=== PATIENT | female | born 1965 | race Two or more races ===

== ENCOUNTER 2020-06-22 12:07 | Outpatient (REF) | payer MEDICAID, SELFPAY | END 2020-06-22 12:08 | disposition home or self-care (01) | LOC: HO.LAB 12:07 | PROVIDERS: Visit Provider Internal Medicine | DX: Z20.822 Contact with and (suspected) exposure to COVID-19 (principal) | CPT/HCPCS: 36415; C9803; U0003 ==

== ENCOUNTER 2020-09-04 14:16 | Outpatient (REF) | payer MEDICAID, SELFPAY ==
[2020-09-04 17:42] LABS: SARS COV2 PCR INHOUSE POSITIVE (Negative)
== END 2020-09-04 14:17 | disposition home or self-care (01) ==
LOC: HO.LAB 14:16
PROVIDERS: Visit Provider Internal Medicine
DX: Z20.822 Contact with and (suspected) exposure to COVID-19 (principal)
CPT/HCPCS: C9803; U0003

== ENCOUNTER 2021-09-24 10:42 | Outpatient (REF) | payer MEDICAID, SELFPAY ==
--- NOTE | ~2021-09-24 | MM_ITS ---
EXAMINATION: MM SCREENING DIGITAL BREAST TOMOSYNTHESIS, BILATERAL CLINICAL INFORMATION: Screening. Asymptomatic. The lifetime risk of breast cancer based on the Tyrer-Cuzick Model is 16%. COMPARISON: Outside mammography 10/28/2014, 01/16/2010, 01/02/2010 ([facility]). TECHNIQUE: Digital breast tomosynthesis is performed in both the craniocaudal and mediolateral oblique views along with computer-aided detection (CAD). Synthesized 2D images are generated from the tomosynthesis. FINDINGS: There are scattered areas of fibroglandular density (ACR BI-RADS breast composition Category b). There are no significant masses, abnormal calcifications, or other abnormalities. There are scattered shifting fibroglandular parenchymal densities overall similar to prior studies. No architectural abnormality. The axilla and skin contours are unremarkable. MM/MM tomosynthesis screening BI IMPRESSION: No mammographic evidence of malignancy. ASSESSMENT: BI-RADS 1: Negative RECOMMENDATION: Routine annual mammography screening. This patient's information was entered into a reminder system with a target due date for their next mammogram.
== END 2021-09-24 10:43 | disposition home or self-care (01) ==
LOC: HO.MAMMO 10:42
PROVIDERS: PCP Student in an Organized Health Care Education/Training Program; Visit Provider Student in an Organized Health Care Education/Training Program
DX: Z12.31 Encounter for screening mammogram for malignant neoplasm of breast (principal)
CPT/HCPCS: 77063; 77067

== ENCOUNTER → 2022-07-17 08:44 | Outpatient (BNVA) | payer MEDICAID, SELFPAY | PROVIDERS: PCP Student in an Organized Health Care Education/Training Program; Visit Provider Internal Medicine Endocrinology, Diabetes & Metabolism | DX: E11.65 Type 2 diabetes mellitus with hyperglycemia (principal); Z79.4 Long term (current) use of insulin | CPT/HCPCS: 36415; 82043; 82947; 83036; 86341; 99202 ==

== ENCOUNTER 2022-07-17 09:49 | Outpatient (REF) | payer MEDICAID, SELFPAY ==
[2022-07-17 12:13] LABS: Creatinine Urine 55.35 mg/dL; Microalbum/Creatinine Ratio Ur 54.2 ug/mg cr
[2022-07-21 17:34] LABS: Glutamic acid decarboxylase Ab <5 IU/mL (<5)
== END 2022-07-17 09:50 | disposition home or self-care (01) ==
LOC: HO.10HDL 09:49
PROVIDERS: Visit Provider Internal Medicine Endocrinology, Diabetes & Metabolism
DX: E11.65 Type 2 diabetes mellitus with hyperglycemia (principal)
CPT/HCPCS: 36415; 82043; 86341

== ENCOUNTER 2023-04-29 17:48 | Outpatient (REF) | payer MEDICAID, SELFPAY ==
[2023-05-02 03:28] LABS: HPV mRNA E6/E7 rflx Not Detected (Not Detected)
== END 2023-04-29 17:49 | disposition home or self-care (01) ==
LOC: HO.CHCLNP 17:48
PROVIDERS: Visit Provider Advanced Practice Midwife
DX: Z12.4 Encounter for screening for malignant neoplasm of cervix (principal); Z11.51 Encounter for screening for human papillomavirus (HPV)
CPT/HCPCS: 87624; 88142

== ENCOUNTER 2024-02-04 09:35 | Outpatient (REF) | payer MEDICAID, SELFPAY ==
[2024-02-04 14:26] LABS: MANUAL DIFF FLAG NO
[2024-02-04 14:35] LABS: Basophils Percent Auto 0.2 % (0-2); Eosinophils Percent Auto 0.8 % (0-4); Hematocrit 42.8 % (37.0-47.0); Hemoglobin 14.7 g/dl (12.0-16.0); Imm Gran Abs Auto 0.02 X10*3/uL (0.00-0.03); Imm Gran Pct Auto 0.4 % (0.0-0.4); Lymphocytes Absolute Auto 1.8 X10*3/uL (1.2-4.9); Lymphocytes Percent Auto 34.1 % (20-40); Mean Corpuscular HGB Conc 34.3 g/dl (31.0-35.0); Mean Corpuscular Hemoglobin 30.4 pg (27.0-33.0); Mean Corpuscular Volume 88.6 fL (80.0-98.0); Mean Platelet Volume 12.9 fL (9.4-12.3); Monocytes Absolute Auto 0.4 X10*3/uL (0.1-1.2); Monocytes Percent Auto 8.1 % (2-11); Neutrophils Percent Auto 56.4 % (45-73); Platelet Count 171 X10*3/uL (160-400); Red Blood Count 4.83 X10*6/uL (4.20-5.50); Red Cell Distribution Width 11.9 % (11.0-16.0); White Blood Count 5.3 X10*3/uL (4.8-10.8)
[2024-02-04 14:42] LABS: Estimated Average Glucose 289 mg/dL; Hemoglobin A1c % 11.7 % (<6.0)
[2024-02-04 15:02] LABS: Alanine Aminotransferase 13 U/L (0-31); Albumin Level 3.9 g/dL (3.5-5.0); Alkaline Phosphatase 92 U/L (39-117); Anion Gap 15 (12-20); Aspartate Amino Transferase 13 U/L (5-31); Bilirubin Direct 0.2 mg/dL (0.0-0.5); Bilirubin Total 0.6 mg/dL (0.0-1.0); Blood Urea Nitrogen 15 mg/dL (9-16); Calcium 9.6 mg/dL (8.4-10.2); Carbon Dioxide 23 mmol/L (22-29); Chloride 103 mmol/L (96-108); Cholesterol 294 mg/dL (<200); Estimated Glomerular Filt Rate > 60; Glucose Random 323 mg/dL (60-115); HDL Cholesterol 38 mg/dL (>40); Lipase 35 U/L (8-78); Potassium 3.7 mmol/L (3.3-5.1); Sodium 137 mmol/L (135-145); Total Protein 7.5 g/dL (6.5-8.0); Triglycerides 597 mg/dL (<150)
== END 2024-02-04 09:36 | disposition home or self-care (01) ==
LOC: HO.CHCLDS 09:35
PROVIDERS: PCP Student in an Organized Health Care Education/Training Program; Referring Provider Family Medicine; Visit Provider Student in an Organized Health Care Education/Training Program
DX: R10.12 Left upper quadrant pain (principal); G89.29 Other chronic pain; I10 Essential (primary) hypertension; E11.9 Type 2 diabetes mellitus without complications; Z79.4 Long term (current) use of insulin
CPT/HCPCS: 36415; 80053; 80061; 82248; 83036; 83690; 85025

== ENCOUNTER 2024-02-05 10:29 | Outpatient (REF) | payer MEDICAID, SELFPAY ==
[2024-02-05 15:27] LABS: Creatinine Urine 66.06 mg/dL; Microalbum/Creatinine Ratio Ur 37.8 ug/mg cr (<30)
== END 2024-02-05 10:30 | disposition home or self-care (01) ==
LOC: HO.CHCLNP 10:29
PROVIDERS: Visit Provider Family Medicine
DX: Z13.89 Encounter for screening for other disorder (principal)
CPT/HCPCS: 82043; 82570

== ENCOUNTER 2025-04-04 09:05 | Outpatient (REF) | payer MEDICAID, SELFPAY ==
--- OUTSIDE RECORDS SUMMARY | 2025-04-04 10:05 | XMS_ITS | Encounter Summary ---
Author Organization [facility] Address [address] [place] [address] [address] [place] [address] Care Team Providers Care Director Of Marketing Name Role Phone Latonia Miller MD Primary Care Provider [phone] Bhavesh Santiago MD Primary Care Prov ider Sybil Humphrey PharmD Unavailable [phone] Encounter Details Date Type Department Care Team (Late st Contact Info) Description 09/30/2022 Orders Only [facility] [address] [place] [address] Latonia Miller MD [address] [place] [address] Social History Tobacco Use Types Packs/Day Years Used Date Smoking Tobacco: Never Smokeless Tobacco: Never Alcohol Use Standard Drinks/Week Comments Never 0 (1 standard drink = 0.6 oz pur e alcohol) PHQ-2 Answer Date Recorded Patient Health Questionnaire-2 Score 1 07/02/2022 Depression Answer Date Recorded Patient Health Questionnaire-2 Score 1 07/02/2022 Comments Unknown Sex and Gender Information Value Date Recorded Sex Assigned at Female 04/01/2022 10:26 AM EDT Legal Sex Female 10:26 AM EDT Gender Identity Female 02/20/2024 11:01 AM EDT Sexual Orientation Straight 02/20/2024 11 :01 AM EDT documented as of this encounter Plan of Treatment Upcoming Encounters Date Type Department Care Team (Late st Contact Info) Description 04/07/2025 1:30 PM EST Medication Management [facility] [address] [place] [address] Sybil Humphrey PharmD [address] [place] [address] documented as of this encounter Visit Diagnoses Not on filedocumented in this encounter Care Teams Director Of Marketing Relationship Specialty Start Date End Date Latonia Miller MD [address] [place] [address] PCP - General Family Medicine 01/23/16 02/27/25 Bhavesh Santiago MD [address] [place] [address] PCP - General Internal Medicine 02/28/25 Sybil Humphrey, [place] [address] [place] [address] Pharmacist Pharmacy 03/10/25 documented as of this encounter
--- OUTSIDE RECORDS SUMMARY | 2025-04-04 10:05 | XMS_ITS | Clinical Summary ---
Author Organization [employer] Address [address] [place] [address] [address] [place] [address] Care Team Providers Care Graduate Assistant Athletic Trainer Name Role Phone Bhavesh Santiago MD Primary Care Prov ider Sybil Humphrey PharmD Unavailable [phone] Allergies No known active allergies Medications albuterol (2.5 MG/3ML) 0.083% nebulizer solution inhale 3 milliliter by nebulization route every 4 - 6 hours 020 Active clonazePAM (KlonoPIN) 0.5 MG tablet TAKE ONE TABLET BY MOUTH ONCE DAILY NEEDED ONLY FOR FOR ANXIETY (SEVERE ONLY) Active escitalopram (Lexapro) 10 MG tablet TAKE ONE TABLET BY MOUTH EVERY MORNING FOR DEPRESSION, FOR ANXIETY Active topiramate 50 MG tablet TAKE ONE TABLET BY MOUTH TWICE DAILY IN THE MORNING AND AT BEDTIME Active zolpidem (Ambien) 10 MG tablet Take 10 mg by mouth if needed at bedtime. Active Witch Yoselyn (Medi-Pads) 50 % padsIndicatio ns:External hemorrhoid USE TO THE AFFECTED AREA(s) EVERY 4 HOURS NEEDED FOR ITCHING 60 each 2 023 Active Blood Pressure kit Check blood pressure daily 1 kit 024 Active Blood Glucose Monitoring Suppl (FreeStyle Shippingport Lite) w/Device kitIndication s:Type 2 diabetes mellitus without complication, without long-term current use of insulin (HCC) TEST BLOOD SUGAR TWICE DAILY 1 kit 024 Active insulin pen needle (BD Pen Needle Kirsten U/F) 32G x 4 mm misc USE FOUR TIMES DAILY 100 each Active FREESTYLE LITE test stripIndicati ons:Type 2 diabetes mellitus without complication, without long-term current use of insulin ([facility]) TEST BLOOD SUGAR TWICE DAILY 100 strip Active TRUEplus Lancets 33G miscIndicatio ns:Type 2 diabetes mellitus without complication, without long-term current use of insulin ([facility]) TEST BLOOD SUGAR TWICE DAILY 60 each Active buPROPion XL (Wellbutrin XL) 150 MG 24 hr tablet Take 150 mg by mouth in the morning. Active lisinopril 5 MG tablet TAKE ONE TABLET EVERY MORNING 90 tablet Active Aspirin Adult Low Strength 81 MG EC tablet TAKE ONE TABLET EVERY MORNING 90 tablet Active atorvastatin (Lipitor) 80 MG tablet TAKE ONE TABLET EVERY MORNING 90 tablet Active insulin glargine (Lantus SoloStar) 100 UNIT/ML penIndication s:Type 2 diabetes mellitus without complication, without long-term current use of insulin ([facility]) Use 80 U qhs 15 mL Active metFORMIN (Glucophage) 1000 MG tabletIndicat ions:Type 2 diabetes mellitus without complication, without long-term current use of insulin ([facility]) TAKE ONE TABLET BY MOUTH TWICE DAILY IN THE MORNING AND AT BEDTIME 180 tablet 1 025 Active lidocaine (Lidoderm) 5 % patchIndicati ons:RUQ abdominal pain Apply to affected area as needed. 30 patch 1 Active Dulaglutide (Trulicity) 1.5 MG/0.5ML solution auto-injector Inject 1.5 mg under the skin 1 (one) time per week. 2 mL 3 025 Active nitroglycerin (Nitrostat) 0.[address] 1 tablet (0.4 mg) under the tongue every 5 (five) minutes if needed for chest pain. 90 tablet 12 025 2025 Active empagliflozin (Jardiance) 10 MGIndications :Type 2 diabetes mellitus without complication, with long-term current use of insulin ([facility]) Take 1 tablet (10 mg) by mouth Once per day. 30 tablet 2 Active Continuous Glucose Sensor (FreeStyle John 3 Plus Sensor) miscIndicatio ns:Type 2 diabetes mellitus without complication, with long-term current use of insulin (HCC) 1 each every 15 days. 2 each 11 Active Invokana 300 MG TAKE ONE TABLET BY MOUTH EVERY MORNING 90 tablet 3 024 2024 Discontinued(M ed list cleanup (will not trigger notification to Pharmacy)) insulin lispro (HumaLOG) 100 UNIT/ML injection INJECT 20 UNITS SUBCUTANEOUSLY THREE TIMES DAILY 30 mL 5 025 2024 Discontinued(P atient refused) Trulicity 0.75 MG/0.5ML solution auto-injector INJECT ONE PEN (=0.75MG) SUBCUTANEOUSLY ONCE A WEEK DIRECTED 2 mL 3 025 2024 Discontinued(M ed list cleanup (will not trigger notification to Pharmacy)) Active Problems Problem Noted Date Diagnosed Date Rotator cuff syndrome 01/21/2024 Class 1 obesity 01/21/2024 Inflammation of sacroiliac joint 01/21/2024 Cervical intraepithelial neoplasia grade 1 01/20 Chronic low back pain 01/21/2024 Chronic LUQ pain 01/21/2024 Assessment & Plan (01/21/2024 3:06 PM EDT): CT of Abdomen for further investigation of Sx. Ordering lab work for further evaluation. Dermatitis associated with moisture 04/29/2023 Assessment & Plan (04/29/2023 3:27 PM EST): -patient has been applying talc powder to the areas under breast and pannus -no sign of acute inflammation -advised to keep area clean and dry -will trial nystatin cream Encounter for IUD removal 04/29/2023 Overview (04/29/2023): -postmenopausal and not sexualy active at this time -no trauma with removal Assessment & Plan (04/29/2023 3:28 PM EST): -postmenopausal and not sexualy active at this time -no trauma with removal Cervical cancer screening 04/29/2023 Assessment & Plan (04/29/2023 3:28 PM EST): -last pap over 5 years ago -pap with HPV co-testing today. repeat in 5 years if normal -would like to obtain trans -will obtain OB surg records [facility] NSTEMI (non-ST elevated myocardial infarction) 0 02/18/2023 Benign essential hypertension 01/23/2016 Assessment & Plan (03/09/2025 1:10 PM EDT): On lisinopril 5mg, told to keep a blood pressure log, will refer to cardiology Type 2 diabetes mellitus 01/23/2016 Assessment & Plan (03/09/2025 1:13 PM EDT): On metformin/invokana/trulicity and insulin, new labs ordered for guidance of therapy, will refer for a eye exam Assessment & Plan (01/21/2024 3:05 PM EDT): Ordering lab work for further evaluation of hemoglobin and lipid panel. Hypercholesterolemia 12/22/2013 Resolved Problems Problem Noted Date Diagnosed Date Resolved Date RUQ abdominal pain 07/02/2022 Assessment & Plan (07/02/2022 4:38 PM EST): Patient visited er found with cholelithiasis, no active infection, currently denied fever/chills, vomiting, will refer to surgery for symptomactic cholelithiasis High blood pressure 12/22/2013 05/20/20 24 Encounters Date Type Department Care Team Description 03/21/2025 Travel 03/10/2025 Travel 02/28/2025 2:45 PM EDT Telemedicine [facility] [address] [place] [address] Bhavesh Santiago MD Type 2 diabetes mellitus without complication, with long-term current use of insulin (CMS/HCC) (Primary Dx); RUQ abdominal pain; Encounter for screening mammogram for malignant neoplasm of breast; Benign essential hypertension 02/28/2025 Travel 01/13/2025 Refill [facility] [address] [place] [address] Latonia Miller MD Type 2 diabetes mellitus without complication, without long-term current use of insulin ([facility]) 01/11/2025 Telephone [facility] [address] [place] [phone] Latonia Miller MD 01/05/2025 Telephone [facility] [address] [place] [phone] Latonia Miller MD from Last 3 Months Immunizations Immunization Administration Dates Next Due Influenza injectable quadrivalent preservative f ree 02/18/2023 Novel [id number], all formulations 2008 Pfizer Covid-19 Vaccine 12+ 10/14/2020 Pneumococcal Polysaccharide PPSV23 10/18/2017 Tdap 11/05/2022 Zoster, Recombinant 11/12/2021,09/11/2021 Social History Tobacco Use Types Packs/Day Years Used Date Smoking Tobacco: Never Passive Smoke Exposure: Never Smokeless Tobacco: Never Tobacco Cessation:Counseling Given: Not Answered Alcohol Use Standard Drinks/Week Comments Never 0 (1 standard drink = 0.6 oz pur e alcohol) PHQ-2 Answer Date Recorded Patient Health Questionnaire-2 Score 1 07/02/2022 Housing Stability Answer Date Recorded What is your housing situation today? I have taylor grimes 03/18/[address] you li ve. Do you have problems with any of the following? None of the above 03/18/2023 Food Insecurity Answer Date Recorded Within the past 12 months, y ou worried that your food would run out before you got money to buy more: Sometimes True 2022 Within the past 12 months,th e food you bought just didn't last and you didn't have enough money to get more: Sometimes True 03/18/2023 Transportation Answer Date Recorded In the past 12 months, has l ack of transportation kept you from medical appts, meetings, work or from getting things needed for daily living? I am not sure 03/18/2023 Utilities Answer Date Recorded In the past 12 months, has t he electric, gas, oil or water company threatened to shut off services in your home? No 03/18/2023 Depression Answer Date Recorded Patient Health Questionnaire-2 Score 1 07/02/2022 Comments No Sex and Gender Information Value Date Recorded Sex Assigned at Female 04/01/2022 10:26 AM EDT Legal Sex Female 10:26 AM EDT Gender Identity Female 02/20/2024 11:01 AM EDT Sexual Orientation Straight 02/20/2024 11 :01 AM EDT Last Filed Vital Signs Vital Sign Reading Time Taken Comments Blood Pressure 146/74 03/10/2025 1:49 PM EDT Pulse 86 03/10/2025 1:49 PM EDT Temperature 36.8 C (98.2 F) 02/03/2024 9:29 AM EDT Respiratory Rate 12 02/03/2024 9:29 AM EDT Oxygen Saturation 100% 03/10/2025 1:49 PM EDT Inhaled Oxygen Concentration - - Weight 91.5 kg (201 lb 12.8 oz) 024 10:15 AM EDT Height 169 cm (5' 6.54 ) 02/03/2024 9:29 AM EDT Body Mass Index 32.04 02/03/2024 9:29 AM EDT Plan of Treatment Upcoming Encounters Date Type Department Care Team (Late st Contact Info) Description 04/07/2025 1:30 PM EST Medication Management [facility] [address] [place] [address] Sybil Humphrey, PharmD [address] [place] [address] Health Maintenance Due Date Last Done Comments CT Colonography 1965 Colonoscopy 1965 FIT 1965 HIV Screening 1965 Sigmoidoscopy 1965 Disability Screening 1967 Alcohol/Substance Use Screening 1979 Hepatitis C Screening 1985 Hepatitis B Vaccines (1 of 3 - 19+ 3-dose series) 1986 Pneumococcal Vaccine: 50+ Years (2 of 2 - PCV) 10/18/2018 10/18/2017 Depression Screening 07/02/2023 07/02/2022, 07/02/19 23 Mammogram 09/25/2023 09/24/2021 SDOH Screening 12/05/2023 12/04/2022 Diabetes: Foot Exam 01/24/2024 01/23/2023, 01/23/2023, 01/23/2023, Additional history exists Eye Exam 10/21/2024 10/21/2022 Tobacco Screening 01/20/2025 01/21/2024 COVID-19 Vaccine ( season) 2025 06/19/2021, 11/08/2020, 10/14/2020 Influenza Vaccine (#1) 2025 02/18/2023, 2008 Lipid Panel 02/03/2025 02/04/2024, 06/0 10/2022, 04/30/2022, Additional history exists Diabetes: Urine Protein Screening 02/04/2025 02/05/2024, 07/17/2022, 09/05/2021 FOBT 02/22/2025 02/23/2024 Diabetes: Hemoglobin A1C 06/10/2025 025, 02/04/2024, 02/03/2024, Additional history exists Cervical Cancer Screening 04/29/2026 HPV/Cotest 04/29/2026 04/29/2023 Pap Smear 04/29/2026 04/29/2023 Colorectal Cancer Screening 02/22/2027 FIT DNA/Cologuard 02/22/2027 02/23/2024 DTaP/Tdap/Td Vaccines (2 - Td or Tdap) 11/05/2032 11/05/2022 RSV Patients and Patients Aged 60 years or older (1 - 1-dose 75+ series) 2042 Zoster Vaccines Completed 11/12/2021, 09/11/2021 HIB Vaccines Aged Out No longer eligi ble based on patient's age to complete this topic HPV Vaccines Aged Out No longer eligi ble based on patient's age to complete this topic Hepatitis A Vaccines Aged Out No long er eligible based on patient's age to complete this topic IPV Vaccines Aged Out No longer eligi ble based on patient's age to complete this topic Meningococcal B Vaccine Aged Out No l onger eligible based on patient's age to complete this topic Meningococcal Vaccine Aged Out No yisel dusty eligible based on patient's age to complete this topic RSV under 20 months Aged Out No longe r eligible based on patient's age to complete this topic Rotavirus Vaccines Aged Out No longer eligible based on patient's age to complete this topic Procedures Procedure Name Priority Date/Time Associated Diagnosis Comments POCT GLYCATED HEMOGLOBIN, TOTAL Routine 03/10/2025 2:02 PM EDT Type 2 diabetes mellitus without complication, with long-term current use of insulin ([facility]) LAB COLOGUARD COLON CANCER SCREEN Routine 02/23/2024 10:45 PM EDT Encounter for screening for malignant neoplasm of colon ALBUMIN, RANDOM URINE W/CREATININE Routine 02/05/2024 8:00 AM EDT LIPID PANEL, STANDARD Routine 02/04/2024 9:38 AM EDT Type 2 diabetes mellitus without complication, with long-term current use of insulin (CMS/HCC) HPV MRNA E6/E7 REFLEX TO HPV 16, 18/45 Routine 04/29/2023 12:00 AM EST PAP SMEAR Routine 04/29/2023 12:00 AM EST MAMMOGRAM GENERIC Routine 09/24/2021 11: 05 AM EDT from Last 3 Months or Most Recently Relevant to Health Maintenance Results * (ABNORMAL) POCT A1c (03/10/2025 2:02 PM EDT) Hemoglobin A1C 12.5(A) 4.0 - 5.7 % QC Media Lot # [id number] Lot# Expiration Date [id number] Blood 03/10/2025 2:02 PM EDT Bhavesh Martinez MD POINT OF CARE TEST ENTER/EDIT ORDERABLES Final Result * Cologuard?? colon cancer screening (02/23/2024 10:45 PM EDT) Cologuard Result Negative Negative 03/01/20 8:28 AM EDT [facility] (CLIA #:[id number]) Comment: NEGATIVE TEST RESULT. A negative Cologuard result indicates a low likelihood that a colorectal cancer (CRC) or advanced adenoma (adenomatous polyps with more advanced pre-malignant features) is present. The chance that a person with a negative Cologuard test has a colorectal cancer is less than 1 in 1500 (negative predictive value >99.9%) or has an advanced adenoma is less than 5.3% (negative predictive value 94.7%). These data are based on a prospective cross-sectional study of 10,000 individuals at average risk for colorectal cancer who were screened with both Cologuard and colonoscopy. (Davie Carmichael et al, N Engl J Med 2014;370(14):8224-5299) The normal value (reference range) for this assay is negative. COLOGUARD RE-SCREENING RECOMMENDATION: Periodic colorectal cancer screening is an important part of preventive healthcare for asymptomatic individuals at average risk for colorectal cancer. Following a negative Cologuard result, the [place] [employer] and U.S. Multi-Society Task Force screening guidelines recommend a Cologuard re-screening interval of 3 years. References: [place] [employer] Guideline for Colorectal Cancer Screening: https://www.cancer.org/cancer/pkjhe-kituxq-uabaae/nmtdonhsv-wpbyxdhcp-wxroxfq/ac s-rec ommendations.html.; Yaya KELSEY, Ricky TORRES, Neil RahmanK, Colorectal Cancer Screening: Recommendations for Physicians and Patients from the U.S. Multi-Society Task Force on Colorectal Cancer Screening , Am J Gastroenterology 2017; 112:7979-2173. TEST DESCRIPTION: Composite algorithmic analysis of stool DNA-biomarkers with hemoglobin immunoassay. Quantitative values of individual biomarkers are not reportable and are not associated with individual biomarker result reference ranges. Cologuard is intended for colorectal cancer screening of adults of either sex, 45 years or older, who are at average-risk for colorectal cancer (CRC). Cologuard has been approved for use by the U.S. FDA. The performance of Cologuard was established in a cross sectional study of average-risk adults aged 50-84. Cologuard performance in patients ages 45 to 49 years was estimated by sub-group analysis of near-age groups. Colonoscopies performed for a positive result may find as the most clinically significant lesion: colorectal cancer [4.0%], advanced adenoma (including sessile serrated polyps greater than or equal to 1cm diameter) [20%] or non- advanced adenoma [31%]; or no colorectal neoplasia [45%]. These estimates are derived from a prospective cross-sectional screening study of 10,000 individuals at average risk for colorectal cancer who were screened with both Cologuard and colonoscopy. (Davie Carmichael et al, N Engl J Med 2014;370(14):2359-9562.) Cologuard may produce a false negative or false positive result (no colorectal cancer or precancerous polyp present at colonoscopy follow up). A negative Cologuard test result does not guarantee the absence of CRC or advanced adenoma (pre-cancer). The current Cologuard screening interval is every 3 years. ([place] [employer] and U.S. Multi-Society Task Force). Cologuard performance data in a 10,000 patient pivotal study using colonoscopy as the reference method can be accessed at the following location: www.Flashstarts/results. Additional description of the Cologuard test process, warnings and precautions can be found at www.Tribridgerd.Divitel. Stool specimen (specimen) Rectal contents / Unknown 02/23/2024 10:45 PM EDT 02/25/2024 9:45 AM EDT us Latonia Miller MD LAB MOLECULAR DIAGNOSTICS ORDERA BLES Final Result [facility] (CLIA #:[id number]) [address] [place] [phone], * (ABNORMAL) Albumin, Random Urine W/Creatinine (02/05/2024 8:00 AM EDT) Creatinine, Urine 66.06 mg/dL [facility] Microalbumin Urine 25.0 mg/L [facility] Microalbum Creatinine Ratio Ur 37.8(H) <30 ug/mg cr [facility] Comment:Albumin/Creatinine R atio Reference Ranges: Normal: < 30 ug/mg creatinine Microalbuminuria: 30 - 300 ug/mg creatinineClinical Albuminuria: > 300 ug/mg creatinine 02/05/2024 8:00 AM EDT 02/05/2024 2:38 PM EDT us Kelly Caballero MD LAB URINE ORDERABLES Final Re sult Performing Organization Address [facility] Co de Phone Number [facility] [address] [place] [address] [phone] * (ABNORMAL) Lipid Panel, Standard (02/04/2024 9:38 AM EDT) Triglycerides 597(H) <150 mg/dL [facility] Comment:Desirable Triglyceri de: less than 150 mg/dLBorderline High Triglyceride 150-199 mg/dLHigh Triglyceride: 200-499 mg/dLVery High Triglyceride: greater than or equal to 5OO mg/dL Cholesterol 294(H) <200 mg/dL [facility] Comment:Desirable Cholestero l: less than 200 mg/dLBorderline High Cholesterol: 200-239 mg/dLHigh Cholesterol: greater than 239 mg/dL LDL Cholesterol Calculated TNP <100 mg/dL [facility] Comment:Unable to calculate the LDL. The formula of Friedwald,Ayon, and Aniket is only valid if the triglycerides areless than 400 mg/dl. HDL Cholesterol 38(L) >40 mg/dL [facility] Comment:Desirable HDL: great er than 40 mg/dL Note: This HDL assay may give artificially low results in patients with liver disease. Blood Venous blood specimen / Unknown 02/04/2024 9:38 AM EDT 02/04/2024 2:23 PM EDT us Kelly Caballero MD LAB BLOOD ORDERABLES Final Re sult Performing Organization Address [facility] Co de Phone Number [facility] [address] [place] [phone] * HPV mRNA E6/E7 w/Reflex to HPV Genotypes 16, 18/45 (04/29/2023 12:00 AM EST) HPV nRNA E6/E7 Not Detected Not Detected [facility] Comment:Methodology: Transcr iption-Mediated AmplificationThis assay detects E6/E7 viral messenger RNA (mRNA) from 14high-risk HPV types (16,18,31,33,35,39,45,51,52,56,58,59,66,68).Cervical sources are required for HPV testing.If a vaginal source from a patient who has had atotal hysterectomy with removal of cervix wassubmitted, please contact the testing laboratoryfor alternative testing options.For additional information, please refer tohttp://education.Terres et Terroirs/faq/ROQ815x7(This link if provided for information/educational purposes only.)THIS TEST WAS PERFORMED AT:[employer] [place] [phone] PLUMMER MD HPV mRNA E6/E7 TNP [facility] HPV 16 RNA [facility] HPV 18/45 RNA [facility] 04/29/2023 04/30/2023 8:0 0 AM EST us Macario Prater [facility] CYTOLOGY ORDERABLES F inal Result [facility] [address] [place] [phone] * Pap Smear (04/29/2023 12:00 AM EST) 04/29/2023 04/30/2023 8:0 0 AM EST Narrative [facility] - 05/12/2023 7:57 AM EST ----- ------- Name: Ruma Friedman Age/Sex: 57/F : 1965 Unit#: [id number] Attend Dr: MACARIO PRATER Re04/29/23 Status: DEP [facility] Disch: ----- ------- SPEC : [id number] RECD: 04/30/23 STATUS: BRANDEN HARMON NUM: [id number] MARILYN: 04/29/23-[address]: MACARIO PRATER ENTERED: 04/30/23 SP TYPE: Pap Smr OTHR DR: ORDERED: Pap Smear Interpretation Satisfactory for evaluation. Coccobacilli consistent with shift in vaginal korey. Negative for intraepithelial lesion or malignancy. HPV mRNA E6/E7: NOT DETECTED This assay detects E6/E7 viral messenger RNA (mRNA) from 14 high-risk HPV types (16, 18, 31, 33, 35, 39, 45, 51, 52, 56, 58, 59, 66, 68) HPV testing performed by [facility], [place], [place]. See reference laboratory portion of the EMR for entire report. Clinical Information LMP: Unknown date Previous PAP test: Unknown date/findings Material Received ThinPrep-Cervical ----- ------- Signed (signature on file) CATA Khoury (ASCP) 05/12/23 0757 ----- ------- END OF REPORT Macario Prater [facility] CYTOLOGY ORDERABLES F inal Result [facility] [address] [place] [phone] * Mammography Report 1 (09/24/2021 11:05 AM EDT) Anatomical Region Laterality Modality Breast Bilateral Mammography 09/24/2021 11:0 5 AM EDT Narrative 09/26/2021 8:15 AM EDT Refer to the Notes tab for result details [facility] Procedure: Mammography Report 1 Procedure Note Provider, MD Rj - 08/25/2022 Refer to the Notes tab for result details [facility] Procedure: Mammography Report 1 Latonia Miller MD IMG BI PROCEDURES Final Result from Last 3 Months or Most Recently Relevant to Health Maintenance Insurance [facility] C3 Care Teams Graduate Assistant Athletic Trainer Relationship Specialty Start Date End Date Bhavesh Santiago MD [address] [place] [phone] PCP - General Internal Medicine 02/28/25 Sybil Humphrey, PharmD [address] [place] [phone] Pharmacist Pharmacy 03/10/25
--- OUTSIDE RECORDS SUMMARY | 2025-04-04 10:05 | XMS_ITS | Encounter Summary ---
Author Organization [employer] Address [address] [place] [address] [address] [place] [address] Care Team Providers Care Outdoor Studies Professor Name Role Phone Latonia Miller MD Primary Care Provider [phone] Bhavesh Santiago MD Primary Care Prov ider Sybil Humphrey PharmD Unavailable [phone] Reason for Visit * Reason Onset Date Comments FYI 07/02/2022 Encounter Details Date Type Department Care Team (Late st Contact Info) Description 07/02/2022 Telephone [facility] MED & PEDS [address] [place], [place] [phone] Latonia Miller MD [address] [place], [place] [phone] Social History Tobacco Use Types Packs/Day Years [...] Orientation Straight 02/20/2024 11 :01 AM EDT COVID-19 Exposure Response Date Recorded In the last 10 days, have yo u been in contact with someone who was confirmed or suspected to have Coronavirus/COVID-19? No / Unsure 07/02/2022 11:14 AM EST documented as of this encounter Functional Status * Over the past 2 weeks, how often have you been bothered by any of the following problems? Question Answer Date of Assessment Author Little interest or pleasure in doing things Not at all 07/02/2022 3:40 PM EST Enedina Elizabeth MA Feeling down, depressed, or hopeless Several days 07/02/2022 3:40 PM EST Blanquita Elizabeth MA Patient Health Questionnaire-2 Score 1 07/02/2022 3:40 PM EST Benson Elizabeth MA * If you checked off any problems on this questionnaire so far, Question Answer Date of Assessment Author How difficult have these problems made it for you to do your work, take care of things at home, or get along with other people? Somewhat difficult 07/02/2022 3:40 PM EST Enedina Elizabeth MA documented as of this encounter Miscellaneous Notes * Telephone Encounter - Hayden Ji RN - 07/02/2022 11:39 AM EST Ordered by Dr. Valentin. Will forward below to PCP to inform. * Telephone Encounter - Aysha Pang - 07/02/2022 11:14 AM EST Tc palmer rapp from [facility] calling to inform pt had her US done at [facility]. Any questions please contact phone # [phone]. documented in this encounter Plan of Treatment Upcoming Encounters Date Type Department Care Team (Late st Contact Info) Description 04/07/2025 1:30 PM EST Medication Management [facility] MED & PEDS [address] [place] [address] Sybil Humphrey, PharmD [address] [facility] [place] [address] documented as of this encounter Visit Diagnoses Not on filedocumented in this encounter Care Teams Outdoor Studies Professor Relationship Specialty Start Date End Date Latonia Miller MD [address] [place] [address] PCP - General Family Medicine 01/23/16 02/27/25 Bhavesh Santiago MD [address] [place] [id number] PCP - General Internal Medicine 02/28/25 Sybil Humphrey PharmD [address] [place] [address] Pharmacist Pharmacy 03/10/25 documented as of this encounter
--- OUTSIDE RECORDS SUMMARY | 2025-04-04 10:05 | XMS_ITS | Encounter Summary ---
Author Organization [facility] Address [address] [place] [address] [address], [place] [address] Care Team Providers Care Invoicing Specialist Name Role Phone Latonia Miller MD Primary Care Provider [phone] Bhavesh Santiago MD Primary Care Prov ider Sybil Humphrey PharmD Unavailable [phone] Encounter Details Date Type Department Care Team (Latest Contact Info) Description 06/27/2021 Abstract [facility] CONVERSIONS Dental, Provider, DDS Social History Tobacco Use Types Packs/Day Years Used Date Smoking Tobacco: Never Assessed Comments Unknown Sex and Gender Information Value [...] Description 04/07/2025 1:30 PM EST Medication Management [facility] CHC MED & PEDS [address] [place] [address] Sybil Humphrey, PharmD [address] [place], [place] [phone] documented as of this encounter Visit Diagnoses Not on filedocumented in this encounter Care Teams Invoicing Specialist Relationship Specialty Start Date End Date Latonia Miller MD [address] [place], [place] [phone] PCP - General Family Medicine 01/23/16 02/27/25 Bhavesh Santiago MD [address] [place] [id number] PCP - General Internal Medicine 02/28/25 Sybil Humphrey PharmD [address] [place] [address] Pharmacist Pharmacy 03/10/25 documented as of this encounter
--- OUTSIDE RECORDS SUMMARY | 2025-04-04 10:05 | XMS_ITS | Encounter Summary ---
Author Organization [employer] Address [address] [facility] [address] [place] [address] Care Team Providers Care Legal Entity Controller Name Role Phone Latonia Miller MD Primary Care Provider [phone] Bhavesh Santiago MD Primary Care Prov ider Sybil Humphrey PharmD Unavailable [phone] Encounter Details Date Type Department Care Team (Late st Contact Info) Description 05/12/2023 Orders Only [facility] MEDICINE [address] [place], [place] [phone] Nasreen Liang CNM [address] [place], [place] [phone] Social History Tobacco Use Types Packs/Day Years [...] Description 04/07/2025 1:30 PM EST Medication Management [facility] MED & PEDS [address] [place], [place] [phone] Sybil Humphrey PharmD [address] [place] [address] documented as of this encounter Procedures Procedure Name Priority Date/Time Associated Diagnosis Comments TISSUE PATHOLOGY Routine 04/16/2010 12:00 AM EST documented in this encounter Results * Tissue Pathology (04/16/2010 12:00 AM EST) Tissue Cervix uteri structure / Unknown Historical Provider LAB PATHOLOGY ORDERABLES Final Result Performing Organization Address City/State/[facility] Co de Phone Number [facility] [address] [place] [address] documented in this encounter Visit Diagnoses Not on filedocumented in this encounter Care Teams Legal Entity Controller Relationship Specialty Start Date End Date Latonia Miller MD [address] [place] [address] PCP - General Family Medicine 01/23/16 02/27/25 Bhavesh Santiago MD [address] [place], [place] [phone] PCP - General Internal Medicine 02/28/25 Sybil Humphrey, [place]iltonD [address] [place] [address] Pharmacist Pharmacy 03/10/25 documented as of this encounter
[2025-04-04 14:11] LABS: MANUAL DIFF FLAG NO
[2025-04-04 14:14] LABS: Hematocrit 41.4 % (37.0-47.0); Hemoglobin 13.6 g/dl (12.0-16.0); Imm Gran Abs Auto 0.02 X10*3/uL (0.00-0.03); Imm Gran Pct Auto 0.4 % (0.0-0.4); Lymphocytes Absolute Auto 2.1 X10*3/uL (1.2-4.9); Mean Corpuscular HGB Conc 32.9 g/dl (31.0-35.0); Mean Corpuscular Hemoglobin 30.2 pg (27.0-33.0); Mean Corpuscular Volume 92.0 fL (80.0-98.0); NRBC Abs Auto 0.000 X10*3/uL (0.0-0.012); NRBC Pct Auto 0.0 /100WBC (0.0-0.2); Platelet Count 214 X10*3/uL (160-400); Red Blood Count 4.50 X10*6/uL (4.20-5.50); White Blood Count 5.3 X10*3/uL (4.8-10.8)
[2025-04-04 14:31] LABS: Alanine Aminotransferase 33 U/L (0-31); Albumin Level 4.0 g/dL (3.5-5.0); Alkaline Phosphatase 76 U/L (39-117); Anion Gap 11 (12-20); Aspartate Amino Transferase 25 U/L (5-31); Blood Urea Nitrogen 15 mg/dL (9-16); Calcium 9.3 mg/dL (8.4-10.2); Carbon Dioxide 25 mmol/L (22-29); Chloride 108 mmol/L (96-108); Cholesterol 251 mg/dL (<200); Estimated Glomerular Filt Rate > 60; HDL Cholesterol 46 mg/dL (>40); Potassium 4.2 mmol/L (3.3-5.1); Sodium 140 mmol/L (135-145); Total Protein 7.3 g/dL (6.5-8.0); Triglycerides 362 mg/dL (<150)
== END 2025-04-04 09:06 | disposition home or self-care (01) ==
LOC: HO.CHCLDS 09:05
PROVIDERS: Visit Provider Internal Medicine
DX: E11.9 Type 2 diabetes mellitus without complications (principal); Z79.4 Long term (current) use of insulin
CPT/HCPCS: 36415; 80053; 80061; 83036; 84443; 85025